=== PATIENT | male | born 1960 | race Two or more races ===

== ENCOUNTER 2022-01-06 08:39 | Inpatient (IN) | payer SELFPAY ==
[~2022-01-06] VITALS: Ht 170.2 cm; Wt 113.0 kg
[2022-01-06 09:33] LABS: BASO % 0 % (0-3); EOS # 0.1 x10^3/uL (0.0-0.7); EOS % 2 % (0-3); HEMATOCRIT 46.2 % (39.0-53.0); HEMOGLOBIN 13.8 g/dL (13.0-17.5); LYMPH % 15 % (24-48); MEAN CORPUSCULAR HEMOGLOBIN 23 pg (25-35); MEAN CORPUSCULAR HGB CONC 30 g/dL (31-37); MEAN CORPUSCULAR VOLUME 78 fL (79-100); MONO # 0.6 x10^3/uL (0.0-1.1); MONO % 10 % (0-9); NEUT # 4.6 x10^3/uL (1.8-7.7); NEUT % 73 % (31-73); PLATELET COUNT 175 x10^3/uL (140-400); RED BLOOD COUNT 5.94 x10^6/uL (4.30-5.70); RED CELL DISTRIBUTION WIDTH 15.9 % (11.5-14.5); WHITE BLOOD COUNT 6.3 x10^3/uL (4.0-11.0)
[2022-01-06 09:38] LABS: BACTERIA,URINE 0 /HPF (0-FEW); WBC,URINE 0 /HPF (0-4)
[2022-01-06 09:42] LABS: CALCIUM 7.4 mg/dL (8.5-10.1); CREATININE 0.8 mg/dL (0.7-1.3); GFR 98.3; POTASSIUM 4.6 mmol/L (3.5-5.1)
--- NOTE | 2022-01-06 09:44 | PHYS DOC ---
Past Medical History Past Medical History: Diabetes-Type II, Hypertension Past Surgical History: No Surgical History General Adult EDM: Chief Complaint: SHORTNESS OF BREATH HPI: HPI: Patient is a 61 year old male who presents with shortness of breath for 8 days. Patient reports past medical history including diabetes and hypertension, for which he usually takes daily medication. However, since Wednesday, he has not taken his medications. Patient reports associated abdominal bloating and swollen legs with sores. Patient denies chest pain, palpitations, cough, nasal congestion, sore throat, abdominal pain, NVD. Patient is yakut speaking. Interview and exam were conducted in yakut with good understanding and fluid communication. Review of Systems: Review of Systems: Constitutional: Denies fever, chills or generalized weakness Eyes: Denies change in visual acuity, visual field deficits or discharge HENT: Denies ear pain, nasal congestion or sore throat Respiratory: See HPI Cardiovascular: See HPI GI: See HPI : Denies dysuria or hematuria Musculoskeletal: Denies back pain or joint pain Integument: See HPI Neurologic: Denies headache, focal weakness or sensory changes Heart Score: C/O Chest Pain: No Allergies: Allergies: Allergies Coded Allergies Type Severity Reaction Last Updated Verified No Known Drug Allergies 01/06/22 No Physical Exam: PE: Constitutional: Obese, no acute distress, non-toxic appearance. HENT: Normocephalic, atraumatic, bilateral external ears normal, nose normal. Eyes: EOMI, conjunctiva normal, no discharge. Neck: Normal range of motion, no stridor, no JVD. Cardiovascular: Heart regular rate and rhythm. No obvious murmurs, rubs or gallops. Lungs & Thorax: Patient does have increased effort breathing, inspiratory wet rales heard right side greater than left. Abdomen: Protuberant abdomen, no masses, no pulsatile masses. Skin: Diffuse nonpruritic, darkened rash across extremities, bilateral lower extremities weeping with less than 1 cm ulcerations. Extremities: Mild tenderness on palpation of bilateral lower extremities, no cyanosis, no clubbing, ROM intact, bilateral 2+ pitting edema. Neurologic: Alert and oriented x4, no focal deficits noted. Current Patient Data: Labs: Laboratory Tests Test 01/06/22 09:13 01/06/22 09:23 Urine Collection Type Unknown Urine Color (Auto) Light yellow Urine Turbidity Clear Urine pH (Auto) 6.5 (<5.0-8.0) Urine Specific [place] 1.017 (1.000-1.030) Urine Protein (Auto) 300 mg/dL (Negative) Urine Glucose (Auto)(UA) 100 mg/dL (Negative) Urine Ketones (Auto) Negative mg/dL (Negative) Urine Blood (Auto) Trace (Negative) Urine Nitrite Negative (Negative) Urine Bilirubin (Auto) Negative (Negative) Urine Urobilinogen (Auto) Normal mg/dL (Normal) Urine Leukocyte Esterase (Auto) Negative (Negative) Urine RBC 1-2 /HPF (0-2) Urine WBC 0 /HPF (0-4) Urine Bacteria 0 /HPF (0-FEW) White Blood Count 6.3 x10^3/uL (4.0-11.0) Red Blood Count 5.94 x10^6/uL (4.30-5.70) Hemoglobin 13.8 g/dL (13.0-17.5) Hematocrit 46.2 % (39.0-53.0) Mean Corpuscular Volume 78 fL (79-100) Mean Corpuscular Hemoglobin 23 pg (25-35) Mean Corpuscular Hemoglobin Concent 30 g/dL (31-37) Red Cell Distribution Width 15.9 % (11.5-14.5) Platelet Count 175 x10^3/uL (140-400) Neutrophils (%) (Auto) 73 % (31-73) Lymphocytes (%) (Auto) 15 % (24-48) Monocytes (%) (Auto) 10 % (0-9) Eosinophils (%) (Auto) 2 % (0-3) Basophils (%) (Auto) 0 % (0-3) Neutrophils # (Auto) 4.6 x10^3/uL (1.8-7.7) Lymphocytes # (Auto) 1.0 x10^3/uL (1.0-4.8) Monocytes # (Auto) 0.6 x10^3/uL (0.0-1.1) Eosinophils # (Auto) 0.1 x10^3/uL (0.0-0.7) Basophils # (Auto) 0.0 x10^3/uL (0.0-0.2) Sodium Level 142 mmol/L (136-145) Potassium Level 4.6 mmol/L (3.5-5.1) Chloride Level 104 mmol/L (98-107) Carbon Dioxide Level 37 mmol/L (21-32) Anion Gap 1 (6-14) Blood Urea Nitrogen 16 mg/dL (8-26) Creatinine 0.8 mg/dL (0.7-1.3) Estimated GFR (Cockcroft-Gault) 98.3 BUN/Creatinine Ratio 20 (6-20) Glucose Level 182 mg/dL (70-99) Calcium Level 7.4 mg/dL (8.5-10.1) Magnesium Level 1.8 mg/dL (1.8-2.4) Total Bilirubin 0.6 mg/dL (0.2-1.0) Aspartate Amino Transf (AST/SGOT) 28 U/L (15-37) Alanine Aminotransferase (ALT/SGPT) 51 U/L (16-63) Alkaline Phosphatase 98 U/L (46-116) Troponin I High Sensitivity 143 ng/L (4-75) FL-Jha-X-Type Natriuretic Peptide 2271 pg/mL (0-124) Total Protein 5.6 g/dL (6.4-8.2) Albumin 2.4 g/dL (3.4-5.0) Albumin/Globulin Ratio 0.8 (1.0-1.7) Vital Signs: Vital Signs Date Time Temp Pulse Resp B/P (MAP) Pulse Ox O2 Delivery O2 Flow Rate FiO2 01/06/22 10:05 70 22 169/93 (118) 96 Nasal Cannula 2.0 01/06/22 09:32 73 24 158/85 (109) 92 Room Air 01/06/22 09:13 76 163/89 (113) Room Air 01/06/22 08:42 98.2 82 26 199/110 (139) 92 Room Air 98.2 EKG: EKG: EKG Interpreted by Dr. Cedeno at 0928: Regular rate and rhythm 74 bpm with no ectopic beats. T wave inversions in septal leads. NH 130 ms/QT 418 ms. No STEMI. Radiology/Procedures: Radiology/Procedures: PROCEDURE: CHEST AP ONLY XR CHEST 1V History: Reason: SOB, peripheral edema / Spl. Instructions: / History: Comparison: None. Findings: Enlarged cardiac size. Small right pleural effusion with loculated component laterally. Mild patchy bibasilar opacities. No pneumothorax. Impression: 1. Small right pleural effusion. 2. Mild patchy bibasilar opacities, may represent atelectasis or developing infiltrates. 3. Enlarged cardiac size, may represent cardiomegaly and/or pericardial effusion. Electronically signed by: Benson Zapien DO (01/06/2022 10:44 AM) [id number] Course & Med Decision Making: Course & Med Decision Making Pertinent Labs and Imaging studies reviewed. (See chart for details) Patient is a 61-year-old male with past medical history including diabetes and hypertension who has not had his medication for a few days and is presenting with shortness of breath and lower extremity swelling. Patient appears to be in fluid overload secondary to CHF. Patient denies existing diagnosis of CHF. Patient will be admitted to hospitalist for new onset CHF work-up. Dr. Naga bravo accepts patient. Estephanie Disclaimer: Estephanie Disclaimer: This electronic medical record was generated, in whole or in part, using a voice recognition dictation system. Departure Departure Impression: Primary Impression: New onset of congestive heart failure Additional Impressions: Generalized edema due to fluid overload Hx of primary hypertension Hx of type 2 diabetes mellitus Disposition: ADMITTED INPATIENT Admitting Physician: WILIAM Diego) Condition: GUARDED MARY VYAS Jan 06, 2022 09:44
[2022-01-06 09:48] LABS: ALBUMIN 2.4 g/dL (3.4-5.0); ALBUMIN/GLOBULIN RATIO 0.8 (1.0-1.7); MAGNESIUM 1.8 mg/dL (1.8-2.4); TOTAL BILIRUBIN 0.6 mg/dL (0.2-1.0); TOTAL PROTEIN 5.6 g/dL (6.4-8.2)
[2022-01-06] MEDS ORDERED: FUROSEMIDE 100 MG/10 ML VIAL. IVP ONE (10:15)
--- NOTE | 2022-01-06 10:35 | EKG ---
[facility] [address] [place] [address] Test Date: 2022-01-06 Test Time: 09:26:42 Pat Name: ARNOLD KRAUS Department: Room: Gender: M [employer]: : 1960 Requested By: MARY VYAS Order Number: [id number] Reading MD: Sergio Donohue Measurements Intervals [place] Rate: 74 P: 28 NC: 130 QRS: 94 QRSD: 84 T: -34 QT: 418 QTc: 464 Interpretive Statements SINUS RHYTHM RIGHTWARD AXIS T ABNORMALITY IN ANTERIOR LEADS Electronically Signed On 01-17-2022 9:50:59 CDT by Sergio Donohue
--- NOTE | 2022-01-06 10:47 | RAD ---
XR CHEST 1V History: Reason: SOB, peripheral edema / Spl. Instructions: / History: Comparison: None. Findings: Enlarged cardiac size. Small right pleural effusion with loculated component laterally. Mild patchy b ibasilar opacities. No pneumothorax. Impression: 1. Small right pleural effusion. 2. Mild patchy bibasilar opacities, may represent atelectasis or developing infiltrates. 3. Enlarged cardiac size, may represent cardiomegaly and/or pericardial effusion. Electronically signed by: Benson Zapien DO (01/06/2022 10:44 AM) [id number]
--- NOTE | 2022-01-06 12:24 | HP ---
DATE OF SERVICE: 01/06/2022 ADMIT DATE: 01/06/2022 CHIEF COMPLAINT: Shortness of breath and swelling. 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 Basically, he presented with shortness of breath and swelling. It appears he has heart failure. He has an elevated BNP. His chest x-ray showing some vascular congestion and cardiomegaly and effusions. We are going to admit the patient and diurese him. PAST MEDICAL HISTORY: Benign. ALLERGIES: None. FAMILY HISTORY: Diabetes. SOCIAL HISTORY: He works doing cabinetry. Does not drink, smoke or take drugs. MEDICATIONS: Reviewed, please refer to the MRAD. REVIEW OF SYSTEMS: GENERAL: No history of weight change, weakness or fevers. SKIN: No bruising, hair changes or rashes. EYES: No blurred, double or loss of vision. NOSE AND THROAT: No history of nosebleeds, hoarseness or sore throat. HEART: No history of palpitations, chest pain or shortness of breath on exertion. LUNGS: He complains of shortness of breath. GASTROINTESTINAL: Denies changes in appetite, nausea, vomiting, diarrhea or constipation. GENITOURINARY: No history of frequency, urgency, hesitancy or nocturia. NEUROLOGIC: Denies history of numbness, tingling, tremor or weakness. PSYCHIATRIC: No history of panic, anxiety or depression. ENDOCRINE: No history of heat or cold intolerance, polyuria or polydipsia. EXTREMITIES: He complains of edema. PHYSICAL EXAMINATION: VITALS: Within normal limits and are stable. GENERAL: No apparent distress. Alert and oriented. HEENT: Normal cephalic atraumatic, external auditory canals are patent. EYES: Extraocular muscles are intact, pupils are equally round and reactive to light and accommodation. MUSCULOSKELETAL: Well developed, well nourished, good range of motion. ENDOCRINE: No thyromegaly was palpated. LYMPHATICS: No cervical chain or axillary nodes were noted. HEMATOPOIETIC: No bruising NECK: Supple, no JVD, no thyromegaly was noted. LUNGS: He has bibasilar crackles. HEART: RRR, S1, S2 present. Peripheral pulses intact, no obvious murmurs were noted. ABDOMEN: Soft, nontender. Positive bowel sounds no organomegaly, normal bowel sounds. EXTREMITIES: He has 2+ edema. NEUROLOGIC: Normal speech, normal tone. A and O x 3, moves all extremities, no obvious focal deficits. PSYCHIATRIC: Normal affect, normal mood. Stable. SKIN: No ulcerations or rashes, good skin turgor, no jaundice. VASCULAR: Good capillary refill, neurovascular bundle appears to be intact. DIAGNOSTICS AND LABORATORY DATA: Chest x-ray shows vascular congestion, cardiomegaly and small effusions and possible infiltrates. White count 6.3. ASSESSMENT AND PLAN: Acute on chronic systolic and diastolic heart failure. The patient will be admitted. We will start IV Lasix. Cardiac monitoring, serial enzymes, serial EKGs. Consult Cardiology. Home meds. Deep venous thrombosis prophylaxis. Full code. Long-term prognosis is guarded. NIKOS/MIGUELANGEL DR: Brenda TID: [id number]
--- NOTE | 2022-01-06 12:51 | PDOC2 ---
CARDIAC CONSULT DATE OF CONSULT Date of Consult DATE: 01/06/22 TIME: 12:47 REASON FOR CONSULT Reason for Consult: CHF REFERRING PHYSICIAN Referring Physician: MERLYN Hernandez SOURCE Source: Chart review, Patient HISTORY OF PRESENT ILLNESS HISTORY OF PRESENT ILLNESS This is a 61 yo male who presented secondary to shortness of breath. Patient reports he has been short of breath for the last week or so. Associated with bilateral LE edema and abdominal distention. Denies any chest pain, palpitations, dizziness, diaphoresis, or nausea/vomiting. Has has history of hypertension and diabetes. Has not taken his medications since this past weekend. PAST MEDICAL HISTORY Cardiovascular: HTN Endocrine: Diabetes PAST SURGICAL HISTORY Past Surgical History: No pertinent history FAMILY HISTORY Family History: Diabetes SOCIAL HISTORY Smoke: No ALCOHOL: none Drugs: None Lives: with Family CURRENT MEDICATIONS CURRENT MEDICATIONS Current Medications Medications (Trade) Dose Ordered Sig/[place] PRN Reason Start Time Stop Time Status Last Admin Dose Admin Furosemide (Lasix) 100 mg 1X ONCE IVP 01/06/22 10:15 01/06/22 10:18 DC 01/06/22 10:53 ALLERGIES ALLERGIES: Coded Allergies: No Known Drug Allergies (Unverified , 01/06/22) ROS Review of System 14 point ROS conducted with pertinent positives noted above in HPI PHYSICAL EXAM General: Alert, Oriented X3, Cooperative, No acute distress HEENT: Atraumatic, Mucous membr. moist/pink Lungs: Other (crackles ) Heart: Regular rate Abdomen: Soft, Other (distended ) Extremities: Other (1-2+ bilateral LE edema ) Skin: No significant lesion Neuro: Normal speech, Sensation intact Psych/Mental Status: Mental status NL, Mood NL MUSCULOSKELETAL: Osteoarthritic changes both hands VITALS/I&O VITALS/I&O: Vital Signs Date Time Temp Pulse Resp B/P (MAP) Pulse Ox O2 Delivery O2 Flow Rate FiO2 01/06/22 10:05 70 22 169/93 (118) 96 Nasal Cannula 2.0 01/06/22 08:42 98.2 98.2 LABS Lab: Laboratory Tests Test 01/06/22 09:13 01/06/22 09:23 Urine Collection Type Unknown Urine Color (Auto) Light yellow Urine Turbidity Clear Urine pH (Auto) 6.5 (<5.0-8.0) Urine Specific [place] 1.017 (1.000-1.030) Urine Protein (Auto) 300 mg/dL (Negative) Urine Glucose (Auto)(UA) 100 mg/dL (Negative) Urine Ketones (Auto) Negative mg/dL (Negative) Urine Blood (Auto) Trace (Negative) Urine Nitrite Negative (Negative) Urine Bilirubin (Auto) Negative (Negative) Urine Urobilinogen (Auto) Normal mg/dL (Normal) Urine Leukocyte Esterase (Auto) Negative (Negative) Urine RBC 1-2 /HPF (0-2) Urine WBC 0 /HPF (0-4) Urine Bacteria 0 /HPF (0-FEW) White Blood Count 6.3 x10^3/uL (4.0-11.0) Red Blood Count 5.94 x10^6/uL (4.30-5.70) H Hemoglobin 13.8 g/dL (13.0-17.5) Hematocrit 46.2 % (39.0-53.0) Mean Corpuscular Volume 78 fL (79-100) L Mean Corpuscular Hemoglobin 23 pg (25-35) L Mean Corpuscular Hemoglobin Concent 30 g/dL (31-37) L Red Cell Distribution Width 15.9 % (11.5-14.5) H Platelet Count 175 x10^3/uL (140-400) Neutrophils (%) (Auto) 73 % (31-73) Lymphocytes (%) (Auto) 15 % (24-48) L Monocytes (%) (Auto) 10 % (0-9) H Eosinophils (%) (Auto) 2 % (0-3) Basophils (%) (Auto) 0 % (0-3) Neutrophils # (Auto) 4.6 x10^3/uL (1.8-7.7) Lymphocytes # (Auto) 1.0 x10^3/uL (1.0-4.8) Monocytes # (Auto) 0.6 x10^3/uL (0.0-1.1) Eosinophils # (Auto) 0.1 x10^3/uL (0.0-0.7) Basophils # (Auto) 0.0 x10^3/uL (0.0-0.2) Sodium Level 142 mmol/L (136-145) Potassium Level 4.6 mmol/L (3.5-5.1) Chloride Level 104 mmol/L (98-107) Carbon Dioxide Level 37 mmol/L (21-32) H Anion Gap 1 (6-14) L Blood Urea Nitrogen 16 mg/dL (8-26) Creatinine 0.8 mg/dL (0.7-1.3) Estimated GFR (Cockcroft-Gault) 98.3 BUN/Creatinine Ratio 20 (6-20) Glucose Level 182 mg/dL (70-99) H Calcium Level 7.4 mg/dL (8.5-10.1) L Magnesium Level 1.8 mg/dL (1.8-2.4) Total Bilirubin 0.6 mg/dL (0.2-1.0) Aspartate Amino Transferase (AST) 28 U/L (15-37) Alanine Aminotransferase (ALT) 51 U/L (16-63) Alkaline Phosphatase 98 U/L (46-116) Troponin I High Sensitivity 143 ng/L (4-75) H YY-Rvz-D-Type Natriuretic Peptide 2271 pg/mL (0-124) H Total Protein 5.6 g/dL (6.4-8.2) L Albumin 2.4 g/dL (3.4-5.0) L Albumin/Globulin Ratio 0.8 (1.0-1.7) L Laboratory Tests 01/06/22 09:23 Laboratory Tests 01/06/22 09:23 ASSESSMENT/PLAN ASSESSMENT/PLAN 1. Acute CHF with possibly diastolic dysfunction; s/p IV Lasix 2. Accelerated HTN; due to med noncompliance 3. Mild troponin elevation; initial high sensitivity trop 143. Most probably type II, demand ischemia secondary to above. CP free. EKG suggestive of anteroseptal ischemia 4. Diabetes, II Recommendations Diuresis Monitor I and O, daily weights Trend troponin ASA therapy Resume home meds when list available Hydralazine IV PRN Lipids Echo to assess LV systolic function Will need further ischemic evaluation, possibly on an outpatient basis. Further pending above HAM TOLEDO APRN Jan 06, 2022 12:51
[2022-01-06 15:00] VITALS: BP 138/92
[2022-01-06] MEDS ORDERED: hydrALAZINE 20 MG/ML VIAL. IVP PRN (16:00)
[2022-01-06] MEDS: ASPIRIN ENTERIC COATED 81 MG TABLET.DR. PO SCH (17:37)
[2022-01-06 19:35] VITALS: BP 156/86
[2022-01-06] MEDS: ATORVASTATIN CALCIUM 40 MG TABLET. PO SCH (21:14)
[2022-01-06 22:58] VITALS: BP 140/82
[2022-01-07 02:44] VITALS: BP 147/90
[2022-01-07 07:00] VITALS: BP 155/86
[2022-01-07] MEDS ORDERED: FUROSEMIDE 40 MG/4 ML VIAL. IVP SCH (09:00)
[2022-01-07] MEDS: ASPIRIN ENTERIC COATED 81 MG TABLET.DR. PO SCH (09:25)
--- NOTE | 2022-01-07 10:29 | PDOC ---
CARDIO Progress Notes Date and Time Date of Service 01/07/22 Time of Evaluation 1030 Subjective Subjective: No Chest Pain, No Palpitations, No Dizziness, Other (swelling better, wanting to go home) Vitals Vitals Vital Signs Date Time Temp Pulse Resp B/P (MAP) Pulse Ox O2 Delivery O2 Flow Rate FiO2 01/07/22 08:00 Nasal Cannula 4.0 01/07/22 07:00 98.5 68 19 155/86 (109) 98 98.5 Weight Weight [ ] Input and Output Intake and Output Intake and Output 01/07/22 07:00 Intake Total 420 ml Output Total 2750 ml Balance -2330 ml Intake Oral 420 ml Output Urine Total 2750 ml Laboratory Labs Laboratory Tests Test 01/06/22 17:25 01/07/22 03:10 Troponin I High Sensitivity 128 ng/L (4-75) Triglycerides Level 130 mg/dL (0-150) Cholesterol Level 128 mg/dL (0-200) LDL Cholesterol, Calculated 70 mg/dL (0-100) VLDL Cholesterol, Calculated 26 mg/dL (0-40) Non-HDL Cholesterol Calculated 96 mg/dL (0-129) HDL Cholesterol 32 mg/dL (40-60) Cholesterol/HDL Ratio 4.0 Physical Exam HEENT: Neck Supple W Full Motion Chest: Symmetric LUNGS: Other (diminished bases ) Heart: RRR Abdomen: Other (distended ) Extremities: Other (2+ bilateral LE edema ) Neurology: alert, oriented, follow commands Assessment Assessment 1. Acute CHF with possible diastolic dysfunction; s/p IV Lasix 2. Accelerated HTN; better controlled 3. Mild troponin elevation; high sensitivity trop peak 143. Most probably type II, demand ischemia secondary to above. CP free. EKG suggestive of anteroseptal ischemia 4. Diabetes, II Recommendations Ongoing diuresis; increase to BID Monitor I and O, daily weights ASA therapy Add amlodipine for BP control Hydralazine IV PRN Echo pending Will need further ischemic evaluation, possibly on an outpatient basis. Further pending above Justicifation of Admission Dx: Justifications for Admission: Justification of Admission Dx: Yes CHF: Hemodynamic Instability HAM TOLEDO APRN Jan 07, 2022 10:28
[2022-01-07] MEDS ORDERED: PERFLUTREN PROTEIN-A MICROSPHR 0.22 MG/ML 3 ML VIAL. IV ONE (10:45)
[2022-01-07 10:55] VITALS: BP 157/90
[2022-01-07 11:04] LABS: CALCIUM 7.6 mg/dL (8.5-10.1); MAGNESIUM 1.8 mg/dL (1.8-2.4); POTASSIUM 4.1 mmol/L (3.5-5.1)
--- NOTE | 2022-01-07 14:33 | NUR ---
SS following for discharge planning. SS reviewed pt chart and discussed with pt RN. Pt is from home and is currently requiring oxygen at three-four liters nasal canula. Pt has no home oxygen. Cardiology following. Pt on IV Lasix. [place]raini speaking only. Self pay. Med Assist following. SS will continue to follow for discharge planning.
[2022-01-07 15:00] VITALS: BP 158/84
[2022-01-07] MEDS ORDERED: AMLO-186 PO (15:57)
[2022-01-07] MEDS ORDERED: POTA10TA12 PO (15:57)
[2022-01-07] MEDS ORDERED: FURO-68 PO (15:57)
[2022-01-07] MEDS ORDERED: ATOR40TA59 PO (15:57)
--- NOTE | 2022-01-07 16:04 | PDOC3 ---
Discharge Summary Visit Information Date of Admission: Jan 06, 2022 Date of Discharge: Jan 07, 2022 Final Diagnosis 1. Acute CHF with possible diastolic dysfunction; s/p IV Lasix 2. Accelerated HTN; better controlled 3. Mild troponin elevation; high sensitivity trop peak 143. Most probably type II, demand ischemia secondary to above. CP free. EKG suggestive of anteroseptal ischemia 4. Diabetes, II Problems Medical Problems: (1) Generalized edema due to fluid overload Status: Acute (2) Hx of primary hypertension Status: Acute (3) Hx of type 2 diabetes mellitus Status: Acute (4) New onset of congestive heart failure Status: Acute Brief Hospital Course Allergies Allergies Coded Allergies Type Severity Reaction Last Updated Verified No Known Drug Allergies 01/06/22 No Vital Signs Vital Signs Date Time Temp Pulse Resp B/P (MAP) Pulse Ox O2 Delivery O2 Flow Rate FiO2 01/07/22 15:00 97.9 71 19 158/84 (108) 95 Nasal Cannula 3.0 97.9 Lab Results Laboratory Tests Test 01/06/22 09:13 01/06/22 09:23 01/06/22 17:25 01/07/22 03:10 Urine Collection Type Unknown Urine Color (Auto) Light yellow Urine Turbidity Clear Urine pH (Auto) 6.5 (<5.0-8.0) Urine Specific [place] 1.017 (1.000-1.030) Urine Protein (Auto) 300 mg/dL (Negative) Urine Glucose (Auto)(UA) 100 mg/dL (Negative) Urine Ketones (Auto) Negative mg/dL (Negative) Urine Blood (Auto) Trace (Negative) Urine Nitrite Negative (Negative) Urine Bilirubin (Auto) Negative (Negative) Urine Urobilinogen (Auto) Normal mg/dL (Normal) Urine Leukocyte Esterase (Auto) Negative (Negative) Urine RBC 1-2 /HPF (0-2) Urine WBC 0 /HPF (0-4) Urine Bacteria 0 /HPF (0-FEW) White Blood Count 6.3 x10^3/uL (4.0-11.0) Red Blood Count 5.94 x10^6/uL (4.30-5.70) Hemoglobin 13.8 g/dL (13.0-17.5) Hematocrit 46.2 % (39.0-53.0) Mean Corpuscular Volume 78 fL (79-100) Mean Corpuscular Hemoglobin 23 pg (25-35) Mean Corpuscular Hemoglobin Concent 30 g/dL (31-37) Red Cell Distribution Width 15.9 % (11.5-14.5) Platelet Count 175 x10^3/uL (140-400) Neutrophils (%) (Auto) 73 % (31-73) Lymphocytes (%) (Auto) 15 % (24-48) Monocytes (%) (Auto) 10 % (0-9) Eosinophils (%) (Auto) 2 % (0-3) Basophils (%) (Auto) 0 % (0-3) Neutrophils # (Auto) 4.6 x10^3/uL (1.8-7.7) Lymphocytes # (Auto) 1.0 x10^3/uL (1.0-4.8) Monocytes # (Auto) 0.6 x10^3/uL (0.0-1.1) Eosinophils # (Auto) 0.1 x10^3/uL (0.0-0.7) Basophils # (Auto) 0.0 x10^3/uL (0.0-0.2) Sodium Level 142 mmol/L (136-145) 145 mmol/L (136-145) Potassium Level 4.6 mmol/L (3.5-5.1) 4.1 mmol/L (3.5-5.1) Chloride Level 104 mmol/L (98-107) 104 mmol/L (98-107) Carbon Dioxide Level 37 mmol/L (21-32) 37 mmol/L (21-32) Anion Gap 1 (6-14) 4 (6-14) Blood Urea Nitrogen 16 mg/dL (8-26) 15 mg/dL (8-26) Creatinine 0.8 mg/dL (0.7-1.3) 1.0 mg/dL (0.7-1.3) Estimated GFR (Cockcroft-Gault) 98.3 76.0 BUN/Creatinine Ratio 20 (6-20) Glucose Level 182 mg/dL (70-99) 118 mg/dL (70-99) Calcium Level 7.4 mg/dL (8.5-10.1) 7.6 mg/dL (8.5-10.1) Magnesium Level 1.8 mg/dL (1.8-2.4) 1.8 mg/dL (1.8-2.4) Total Bilirubin 0.6 mg/dL (0.2-1.0) Aspartate Amino Transf (AST/SGOT) 28 U/L (15-37) Alanine Aminotransferase (ALT/SGPT) 51 U/L (16-63) Alkaline Phosphatase 98 U/L (46-116) Troponin I High Sensitivity 143 ng/L (4-75) 128 ng/L (4-75) EV-Deo-P-Type Natriuretic Peptide 2271 pg/mL (0-124) Total Protein 5.6 g/dL (6.4-8.2) Albumin 2.4 g/dL (3.4-5.0) Albumin/Globulin Ratio 0.8 (1.0-1.7) Thyroid Stimulating Hormone (TSH) 1.962 uIU/mL (0.358-3.74) Triglycerides Level 130 mg/dL (0-150) Cholesterol Level 128 mg/dL (0-200) LDL Cholesterol, Calculated 70 mg/dL (0-100) VLDL Cholesterol, Calculated 26 mg/dL (0-40) Non-HDL Cholesterol Calculated 96 mg/dL (0-129) HDL Cholesterol 32 mg/dL (40-60) Cholesterol/HDL Ratio 4.0 Laboratory Tests Test 01/06/22 17:25 01/07/22 03:10 Troponin I High Sensitivity 128 ng/L (4-75) Sodium Level 145 mmol/L (136-145) Potassium Level 4.1 mmol/L (3.5-5.1) Chloride Level 104 mmol/L (98-107) Carbon Dioxide Level 37 mmol/L (21-32) Anion Gap 4 (6-14) Blood Urea Nitrogen 15 mg/dL (8-26) Creatinine 1.0 mg/dL (0.7-1.3) Estimated GFR (Cockcroft-Gault) 76.0 Glucose Level 118 mg/dL (70-99) Calcium Level 7.6 mg/dL (8.5-10.1) Magnesium Level 1.8 mg/dL (1.8-2.4) Triglycerides Level 130 mg/dL (0-150) Cholesterol Level 128 mg/dL (0-200) LDL Cholesterol, Calculated 70 mg/dL (0-100) VLDL Cholesterol, Calculated 26 mg/dL (0-40) Non-HDL Cholesterol Calculated 96 mg/dL (0-129) HDL Cholesterol 32 mg/dL (40-60) Cholesterol/HDL Ratio 4.0 Brief Hospital Course Mr. Palafox is a 61 old male, admi with CHF, better with IV lasix, BNP 2200 trop minimally up, no CAD per CV cnsult Echo, may be done outpatietn, should have outpatient stress test. Discharge Information Condition at Discharge: Improved Follow Up: Weeks Disposition/Orders: D/C to Home Scheduled Amlodipine Besylate (Amlodipine Besylate) 5 Mg Tablet, 5 MG PO DAILY for blood pressure, #30 Ref 1 Prescribed by: SCOTT ORANTES on 01/07/221556 Atorvastatin Calcium (Atorvastatin Calcium) 40 Mg Tablet, 40 MG PO QHS for lipids, #30 Ref 1 Prescribed by: SCOTT ORANTES on 01/07/227 Furosemide (Lasix) 40 Mg Tablet, 1 TAB PO DAILY for CHF for 30 Days, #30 Ref 0 Prescribed by: SCOTT ORANTES on 01/07/221556 Potassium Chloride (Klor-Con 10) 10 Meq Tablet.er, 1 TAB PO DAILY for while on Lasix for 30 Days, #30 Ref 0 Prescribed by: SCOTT ORANTES on 01/07/22 1557 Patient Instructions Patient Instructions f/u Virgen with primary care 33 min face to face Justicifation of Admission Dx: Justifications for Admission: Justification of Admission Dx: Yes CHF: Hemodynamic Instability SCOTT ORANTES MD Jan 07, 2022 16:04
--- NOTE | 2022-01-07 16:17 | NUR ---
Spoke with Ariane ALVES she states patient is not ok to discharge home. Patient needs to continue to diurese and await echo results before discharging.
--- NOTE | 2022-01-07 16:39 | CARD ---
MR#: [id number] Date of Study: 01/07/2022 Ordering Physician: HAM TOLEDO, Referring Physician: HAM TOLEDO, Tech: Isaias Argueta [facility] APPROVED REPORT EXAM: Two-dimensional and M-mode echocardiogram with Doppler and color Doppler. Other Information Quality : AverageHR: 67bpm Rhythm : NSR INDICATION Congestive Heart Failure 2D DIMENSIONS Left Atrium(2D)4.1 (1.6-4.0cm)IVSd1.2 (0.7-1.1cm) Aortic Root(2D)3.6 (2.0-3.7cm)LVDd4.6 (3.9-5.9cm) LVOT Diameter2.0 (1.8-2.4cm)PWd1.3 (0.7-1.1cm) LVDs2.9 (2.5-4.0cm)FS (%) 38.4 % SV68.0 mlLVEF(%)68.7 (>50%) Aortic Valve AoV Peak Yan.160.7cm/sAoV VTI33.0cm AO Peak GR.10.3mmHgLVOT Peak Yan.112.2cm/s LVOT VTI 25.29cmAO Mean GR.6mmHg PRISCILLA (VMAX)1.11hd4HCX (VTI)2.30cm2 Mitral Valve MV E Ctfxgcuq54.0cm/sMV DECEL SYSH449zj MV A Ujcchrfe868.7cm/sMV DUB32qf E/A Ratio0.9MVA (PHT)3.24cm2 TDI E/Lateral E'17.5E/Medial E'19.4 Pulmonary Valve PV Peak Rijxhgeo611.1cm/sPV Peak Grad.5mmHg Tricuspid Valve TR P. Azlifptd487jy/sTR Peak Gr.39mmHg Pulmonary Vein S1 Vytsddgu68.1cm/sD2 Cypszekq72.9cm/s LEFT VENTRICLE The left ventricle is normal size. There is normal left ventricular wall thickness. The left ventricu lar systolic function is normal. The ejection fraction is 55-60%. There is normal LV segmental wall m otion. Transmitral Doppler flow pattern is Grade I-abnormal relaxation pattern. No left ventricle thr ombus noted on this study. There is no ventricular septal defect visualized. There is no left ventric ular aneurysm. There is no mass noted in the left ventricle. RIGHT VENTRICLE The right ventricle is mildly dilated. There is normal right ventricular wall thickness. The right ve ntricular systolic function is normal. ATRIA The left atrium is borderline dilated. The right atrium is mildly dilated. The interatrial septum is intact with no evidence for an atrial septal defect or patent foramen ovale as noted on 2-D or Dopple r imaging. AORTIC VALVE The aortic valve is mildly sclerotic. Doppler and Color Flow revealed no significant aortic regurgita tion. There is no significant aortic valvular stenosis. There is no aortic valvular vegetation. MITRAL VALVE The mitral valve is normal in structure and function. There is no evidence of mitral valve prolapse. There is no mitral valve stenosis. Doppler and Color-flow revealed trace mitral regurgitation. TRICUSPID VALVE The tricuspid valve is normal in structure and function. Doppler and Color Flow revealed trace tricus pid regurgitation. The PA pressure was estimated at 50 mmHg. There is no tricuspid valve prolapse or vegetation. There is no tricuspid valve stenosis. PULMONIC VALVE The pulmonary valve is normal in structure and function. Doppler and Color Flow revealed no pulmonic valvular regurgitation. There is no pulmonic valvular stenosis. GREAT VESSELS The aortic root is normal in size. The ascending aorta is normal in size. The pulmonary artery is nor mal. The IVC is normal in size and collapses >50% with inspiration. PERICARDIAL EFFUSION There is no pleural effusion. There is no evidence of significant pericardial effusion. Critical Notification Critical Value: No <Conclusion> The left ventricular systolic function is normal. The ejection fraction is 55-60%. There is normal LV segmental wall motion. Transmitral Doppler flow pattern is Grade I-abnormal relaxation pattern. Trace mitral regurgitation. Trace tricuspid regurgitation. The PA pressure was estimated at 50 mmHg. There is no evidence of significant pericardial effusion. Signed by : Sergio Donohue, Electronically Approved : 01/07/2022 16:39:32
[2022-01-07] MEDS: FUROSEMIDE 40 MG/4 ML VIAL. IVP SCH (16:42)
[2022-01-07 19:14] VITALS: BP 184/90
--- NOTE | 2022-01-07 19:40 | NUR ---
Pt in bed assessment completed vss pt denied pain at this time will resume care and continue to monitor pt.Call light in reach.
[2022-01-07 20:48] LABS: AMPHETAMINE/METHAMPHETAMINE NEG (NEG); BARBITURATES NEG (NEG); BENZODIAZEPINES NEG (NEG); CANNABINOIDS NEG (NEG); COCAINE NEG (NEG); METHADONE NEG (NEG); OPIATES NEG (NEG); PHENCYCLIDINE NEG (NEG)
[2022-01-07] MEDS: ATORVASTATIN CALCIUM 40 MG TABLET. PO SCH (21:51)
[2022-01-07 23:01] VITALS: BP 182/75
[2022-01-08 03:00] VITALS: BP 181/101
[2022-01-08 04:39] VITALS: BP 169/94
[2022-01-08 04:59] LABS: HEMOGLOBIN A1C 7.4 % (4.8-5.6)
[2022-01-08 07:00] VITALS: BP 157/94
[2022-01-08] MEDS: FUROSEMIDE 40 MG/4 ML VIAL. IVP SCH ×2 (08:11→14:00)
[2022-01-08] MEDS: POTASSIUM CHLORIDE 20 MEQ TABLET.ER. PO SCH (08:12)
[2022-01-08] MEDS: ASPIRIN ENTERIC COATED 81 MG TABLET.DR. PO SCH (08:12)
[2022-01-08 10:59] VITALS: BP 160/90
--- NOTE | 2022-01-08 13:09 | NUR ---
SS following up with discharge planning. SS reviewed pt chart and discussed with pt RN. Pt is currently on room air. Cardiology following. Self pay. Med Assist following. Discharge order on the chart for home with self care. Addendum: 01/08/22 at 1316 by GIGI YOUNGBLOOD SS Good RX card and information for [facility] services provided for discharge to home. Addendum: 01/08/22 at 1533 by GIGI YOUNGBLOOD SS Per RN. Pt is currently requiring oxygen at three liters nasal canula. Six minute walk ordered.
--- NOTE | 2022-01-08 14:08 | PDOC ---
[employer] PROGRESS NOTE Date of Service DOS: DATE: 01/08/22 TIME: 14:07 Chief Complaint Chief Complaint LATE ENTRY, DC order placed on 01/07, pt seen and DC plan made, exam doen 1. Acute diasolic CHF with acute edema 2. Accelerated HTN on admit, needs meds 3. NSTEMI 2, demand 4. DM2 5. OBESE, bmi 39 History of Present Illness History of Present Illness felt well, wantede to leave, extra IV lasix was given Vitals/I&O Vitals/I&O: Vital Signs Date Time Temp Pulse Resp B/P (MAP) Pulse Ox O2 Delivery O2 Flow Rate FiO2 01/08/22 10:59 97.4 66 19 160/90 (113) 100 Nasal Cannula 3.0 97.4 I & O 01/07/22 01/07/22 01/08/22 15:00 23:00 07:00 Intake Total 360 ml 380 ml Output Total 1700 ml 1000 ml 1050 ml Balance -1340 ml -620 ml -1050 ml Physical Exam General: Alert, Oriented X3, Cooperative, No acute distress Heart: Regular rate Abdomen: Soft, Other (distended ) Extremities: Other (1-2+ bilateral LE edema ) Skin: No significant lesion Labs Labs: Laboratory Tests Test 01/07/22 19:53 Urine Opiates Screen Neg (NEG) Urine Methadone Screen Neg (NEG) Urine Barbiturates Neg (NEG) Urine Phencyclidine Screen Neg (NEG) Urine Amphetamine/Methamphetamine Neg (NEG) Urine Benzodiazepines Screen Neg (NEG) Urine Cocaine Screen Neg (NEG) Urine Cannabinoids Screen Neg (NEG) Urine Ethyl Alcohol Neg (NEG) Assessment and Plan Assessmemt and Plan Problems Medical Problems: (1) Generalized edema due to fluid overload Status: Acute (2) Hx of primary hypertension Status: Acute (3) Hx of type 2 diabetes mellitus Status: Acute (4) New onset of congestive heart failure Status: Acute Comment Review of Relevant I have reviewed the following items indira (where applicable) has been applied. Medications: Current Medications Medications (Trade) Dose Ordered Sig/Bay Route PRN Reason Start Time Stop Time Status Last Admin Dose Admin Furosemide (Lasix) 40 mg [id number] IVP 01/07/22 16:00 01/08/22 08:11 Potassium Chloride (Klor-Con) 20 meq [id number] PO 01/08/22 08:00 01/08/22 08:12 Amlodipine Besylate (Norvasc) 5 mg DAILY PO 01/07/22 16:00 01/08/22 08:12 Justifications for Admission Other Justification SCOTT ORANTES MD Jan 08, 2022 14:08
--- NOTE | 2022-01-08 14:15 | PDOC3 ---
Discharge Summary Visit Information Date of Admission: Jan 06, 2022 Date of Discharge: Jan 07, 2022 Final Diagnosis 1. Acute diasolic CHF with acute edema 2. Accelerated HTN on admit, needs htn meds to continue 3. NSTEMI 2, demand 4. DM2 5. OBESE, bmi 39 Problems Medical Problems: (1) Generalized edema due to fluid overload Status: Acute (2) Hx of primary hypertension Status: Acute (3) Hx of type 2 diabetes mellitus Status: Acute (4) New onset of congestive heart failure Status: Acute Brief Hospital Course Allergies Allergies Coded Allergies Type Severity Reaction Last Updated Verified No Known Drug Allergies 01/06/22 No Vital Signs Vital Signs Date Time Temp Pulse Resp B/P (MAP) Pulse Ox O2 Delivery O2 Flow Rate FiO2 01/08/22 10:59 97.4 66 19 160/90 (113) 100 Nasal Cannula 3.0 97.4 Lab Results Laboratory Tests Test 01/06/22 17:25 01/07/22 03:10 01/07/22 19:53 Troponin I High Sensitivity 128 ng/L (4-75) Sodium Level 145 mmol/L (136-145) Potassium Level 4.1 mmol/L (3.5-5.1) Chloride Level 104 mmol/L (98-107) Carbon Dioxide Level 37 mmol/L (21-32) Anion Gap 4 (6-14) Blood Urea Nitrogen 15 mg/dL (8-26) Creatinine 1.0 mg/dL (0.7-1.3) Estimated GFR (Cockcroft-Gault) 76.0 Glucose Level 118 mg/dL (70-99) Hemoglobin A1c 7.4 % (4.8-5.6) Calcium Level 7.6 mg/dL (8.5-10.1) Magnesium Level 1.8 mg/dL (1.8-2.4) Triglycerides Level 130 mg/dL (0-150) Cholesterol Level 128 mg/dL (0-200) LDL Cholesterol, Calculated 70 mg/dL (0-100) VLDL Cholesterol, Calculated 26 mg/dL (0-40) Non-HDL Cholesterol Calculated 96 mg/dL (0-129) HDL Cholesterol 32 mg/dL (40-60) Cholesterol/HDL Ratio 4.0 Urine Opiates Screen Neg (NEG) Urine Methadone Screen Neg (NEG) Urine Barbiturates Neg (NEG) Urine Phencyclidine Screen Neg (NEG) Urine Amphetamine/Methamphetamine Neg (NEG) Urine Benzodiazepines Screen Neg (NEG) Urine Cocaine Screen Neg (NEG) Urine Cannabinoids Screen Neg (NEG) Urine Ethyl Alcohol Neg (NEG) Laboratory Tests Test 01/07/22 19:53 Urine Opiates Screen Neg (NEG) Urine Methadone Screen Neg (NEG) Urine Barbiturates Neg (NEG) Urine Phencyclidine Screen Neg (NEG) Urine Amphetamine/Methamphetamine Neg (NEG) Urine Benzodiazepines Screen Neg (NEG) Urine Cocaine Screen Neg (NEG) Urine Cannabinoids Screen Neg (NEG) Urine Ethyl Alcohol Neg (NEG) Brief Hospital Course Mr. Palafox is a 61 old admit for accel htn, edmea, shortness of breath, BP meds, IV lasix, symtoms [facility], [place] to primary care, Discharge Information Condition at Discharge: Improved Follow Up: Weeks Disposition/Orders: D/C to Home Scheduled Amlodipine Besylate (Amlodipine Besylate) 5 Mg Tablet, 5 MG PO DAILY for blood pressure, #30 Ref 1 Prescribed by: SCOTT ORANTES on 01/07/22 1557 Atorvastatin Calcium (Atorvastatin Calcium) 40 Mg Tablet, 40 MG PO QHS for lipi ds, #30 Ref 1 Prescribed by: SCOTT ORANTES on 01/07/22 1557 Furosemide (Lasix) 40 Mg Tablet, 1 TAB PO DAILY for CHF for 30 Days, #30 Ref 0 Prescribed by: SCOTT ORANTES on 01/07/22 1557 Potassium Chloride (Klor-Con 10) 10 Meq Tablet.er, 1 TAB PO DAILY for while on Lasix for 30 Days, #30 Ref 0 Prescribed by: SCOTT ORANTES on 01/07/22 1557 Patient Instructions Patient Instructions face to face, felt well, improed, Justicifation of Admission Dx: Justifications for Admission: Justification of Admission Dx: Yes CHF: Hemodynamic Instability SCOTT ORANTES MD Jan 08, 2022 14:15
[2022-01-08 19:33] VITALS: BP 182/99
[2022-01-08] MEDS: ATORVASTATIN CALCIUM 40 MG TABLET. PO SCH (21:46)
[2022-01-08 22:47] VITALS: BP 149/70
[2022-01-09 03:07] VITALS: BP 155/75
[2022-01-09 07:00] VITALS: BP 157/92
--- NOTE | 2022-01-09 08:26 | RAD ---
XR CHEST 1V History: Reason: hypoxia / Spl. Instructions: / History: Comparison: January 06, 2022 Findings: Decreased small loculated right pleural effusion. Increased patchy right basilar opacities. Enlarged iliac size, unchanged. No pneumothorax. Impression: 1. Increased patchy bibasilar opacities, may represent atelectasis or developing consolidations. 2. Decreased loculated right pleural effusion. Electronically signed by: Benson Zapien DO (01/09/2022 8:23 AM) [id number]
[2022-01-09] MEDS: POTASSIUM CHLORIDE 20 MEQ TABLET.ER. PO SCH (08:39)
[2022-01-09] MEDS: ASPIRIN ENTERIC COATED 81 MG TABLET.DR. PO SCH (08:39)
[2022-01-09] MEDS: FUROSEMIDE 80 MG TABLET. PO SCH (09:16)
[2022-01-09 09:58] LABS: BASO % 1 % (0-3); EOS # 0.1 x10^3/uL (0.0-0.7); EOS % 2 % (0-3); HEMATOCRIT 43.9 % (39.0-53.0); HEMOGLOBIN 13.5 g/dL (13.0-17.5); LYMPH # 0.9 x10^3/uL (1.0-4.8); LYMPH % 16 % (24-48); MEAN CORPUSCULAR HEMOGLOBIN 24 pg (25-35); MEAN CORPUSCULAR HGB CONC 31 g/dL (31-37); MEAN CORPUSCULAR VOLUME 77 fL (79-100); MONO # 0.6 x10^3/uL (0.0-1.1); MONO % 10 % (0-9); NEUT # 4.2 x10^3/uL (1.8-7.7); NEUT % 71 % (31-73); PLATELET COUNT 148 x10^3/uL (140-400); RED BLOOD COUNT 5.69 x10^6/uL (4.30-5.70); RED CELL DISTRIBUTION WIDTH 15.4 % (11.5-14.5); WHITE BLOOD COUNT 5.8 x10^3/uL (4.0-11.0)
--- NOTE | 2022-01-09 10:14 | PDOC ---
HAM TOLEDO APRN 01/09/22 1014: CARDIO Progress Notes Date and Time Date of Service 01/09/22 Time of Evaluation 1010 Subjective Subjective: No Chest Pain, No Palpitations, No Dizziness, Other (not more SOA) Vitals Vitals Vital Signs Date Time Temp Pulse Resp B/P (MAP) Pulse Ox O2 Delivery O2 Flow Rate FiO2 01/09/22 08:40 67 157/92 01/09/22 08:00 Nasal Cannula 3.0 01/09/22 07:00 97.2 18 99 97.2 Weight Weight [ ] Input and Output Intake and Output Intake and Output 01/09/22 07:00 Intake Total 520 ml Output Total 750 ml Balance -230 ml Intake Oral 520 ml Output Urine Total 750 ml # Bowel Movements 1 Physical Exam HEENT: Neck Supple W Full Motion Chest: Symmetric LUNGS: Other (bibasilar crackles ) Heart: RRR Abdomen: Other (distended ) Extremities: Other (1+ bilateral LE edema ) Neurology: alert, oriented, follow commands Assessment Assessment 1. Acute diastolic CHF; s/p IV Lasix. Repeat CXR worse 2. Acute respiratory failure with CHF. Pulmonary consulted 3. Accelerated HTN; better controlled, but remains mildly elevated 4. Mild troponin elevation; high sensitivity trop peak 143. Most probably type II, demand ischemia secondary to above. CP free. EKG suggestive of anteroseptal ischemia. Echo with preserved LV systolic function. 5. Diabetes, II 6. PulmHTN; PAP 50 mmHg Recommendations Lasix therapy BMP ASA, statin Add coreg R/o COVID Chest CT for further evaluation Outpatient ischemic evaluation Supportive care Justicifation of Admission Dx: Justifications for Admission: Justification of Admission Dx: Yes CHF: Hemodynamic Instability GAIL PAULINO MD 01/09/221924: CARDIO Progress Notes Plan Plan The patient was seen and interviewed as well as examined at the bedside. The chart was reviewed. The case was discussed. Agree with the plan of care. HAM TOLEDO APRN Jan 09, 2022 10:14 GAIL PAULINO MD Jan 09, 2022 19:25
[2022-01-09 10:17] LABS: ALBUMIN 2.3 g/dL (3.4-5.0); ALBUMIN/GLOBULIN RATIO 0.7 (1.0-1.7); ALK PHOS 80 U/L (46-116); ALT (SGPT) 34 U/L (16-63); AST (SGOT) 17 U/L (15-37); BLOOD UREA NITROGEN 11 mg/dL (8-26); BUN/CREATININE RATIO 16 (6-20); CALCIUM 7.9 mg/dL (8.5-10.1); CARBON DIOXIDE 42 mmol/L (21-32); CHLORIDE 100 mmol/L (98-107); CREATININE 0.7 mg/dL (0.7-1.3); GFR 114.6; GLUCOSE 143 mg/dL (70-99); POTASSIUM 4.9 mmol/L (3.5-5.1); SODIUM 141 mmol/L (136-145); TOTAL BILIRUBIN 0.9 mg/dL (0.2-1.0); TOTAL PROTEIN 5.4 g/dL (6.4-8.2)
[2022-01-09] MEDS ORDERED: PIP/TAZO PER PHARMACY MC PRN (10:30)
[2022-01-09] MEDS ORDERED: FUROSEMIDE 40 MG/4 ML VIAL. IVP ONE (10:30)
[2022-01-09] MEDS ORDERED: VANCOMYCIN PER PHARMACY MC PRN (10:30)
[2022-01-09 11:00] VITALS: BP 147/83
[2022-01-09] MEDS ORDERED: VANCOMYCIN 2 GM in IV NORMAL SALINE 500ML BAG 500 ML IV ONE (11:00)
--- NOTE | 2022-01-09 12:03 | PDOC ---
PULMONARY PROGRESS NOTES DATE: 01/09/22 TIME: 12:02 Vitals Vital Signs Date Time Temp Pulse Resp B/P (MAP) Pulse Ox O2 Delivery O2 Flow Rate FiO2 01/09/22 11:00 78 19 147/83 (104) 93 Nasal Cannula 3.0 01/09/22 07:00 97.2 97.2 Labs Laboratory Tests Test 01/07/22 19:53 01/09/22 09:23 01/09/22 10:45 Urine Opiates Screen Neg (NEG) Urine Methadone Screen Neg (NEG) Urine Barbiturates Neg (NEG) Urine Phencyclidine Screen Neg (NEG) Urine Amphetamine/Methamphetamine Neg (NEG) Urine Benzodiazepines Screen Neg (NEG) Urine Cocaine Screen Neg (NEG) Urine Cannabinoids Screen Neg (NEG) Urine Ethyl Alcohol Neg (NEG) White Blood Count 5.8 x10^3/uL (4.0-11.0) Red Blood Count 5.69 x10^6/uL (4.30-5.70) Hemoglobin 13.5 g/dL (13.0-17.5) Hematocrit 43.9 % (39.0-53.0) Mean Corpuscular Volume 77 fL (79-100) Mean Corpuscular Hemoglobin 24 pg (25-35) Mean Corpuscular Hemoglobin Concent 31 g/dL (31-37) Red Cell Distribution Width 15.4 % (11.5-14.5) Platelet Count 148 x10^3/uL (140-400) Neutrophils (%) (Auto) 71 % (31-73) Lymphocytes (%) (Auto) 16 % (24-48) Monocytes (%) (Auto) 10 % (0-9) Eosinophils (%) (Auto) 2 % (0-3) Basophils (%) (Auto) 1 % (0-3) Neutrophils # (Auto) 4.2 x10^3/uL (1.8-7.7) Lymphocytes # (Auto) 0.9 x10^3/uL (1.0-4.8) Monocytes # (Auto) 0.6 x10^3/uL (0.0-1.1) Eosinophils # (Auto) 0.1 x10^3/uL (0.0-0.7) Basophils # (Auto) 0.0 x10^3/uL (0.0-0.2) Sodium Level 141 mmol/L (136-145) Potassium Level 4.9 mmol/L (3.5-5.1) Chloride Level 100 mmol/L (98-107) Carbon Dioxide Level 42 mmol/L (21-32) Anion Gap (6-14) Blood Urea Nitrogen 11 mg/dL (8-26) Creatinine 0.7 mg/dL (0.7-1.3) Estimated GFR (Cockcroft-Gault) 114.6 BUN/Creatinine Ratio 16 (6-20) Glucose Level 143 mg/dL (70-99) Calcium Level 7.9 mg/dL (8.5-10.1) Magnesium Level 1.5 mg/dL (1.8-2.4) Total Bilirubin 0.9 mg/dL (0.2-1.0) Aspartate Amino Transf (AST/SGOT) 17 U/L (15-37) Alanine Aminotransferase (ALT/SGPT) 34 U/L (16-63) Alkaline Phosphatase 80 U/L (46-116) NE-Avj-W-Type Natriuretic Peptide 1177 pg/mL (0-124) Total Protein 5.4 g/dL (6.4-8.2) Albumin 2.3 g/dL (3.4-5.0) Albumin/Globulin Ratio 0.7 (1.0-1.7) Procalcitonin < 0.10 ng/mL (0.00-0.10) SARS-CoV-2 Antigen (Rapid) Negative (NEGATIVE) Laboratory Tests Test 01/09/22 09:23 01/09/22 10:45 White Blood Count 5.8 x10^3/uL (4.0-11.0) Red Blood Count 5.69 x10^6/uL (4.30-5.70) Hemoglobin 13.5 g/dL (13.0-17.5) Hematocrit 43.9 % (39.0-53.0) Mean Corpuscular Volume 77 fL (79-100) Mean Corpuscular Hemoglobin 24 pg (25-35) Mean Corpuscular Hemoglobin Concent 31 g/dL (31-37) Red Cell Distribution Width 15.4 % (11.5-14.5) Platelet Count 148 x10^3/uL (140-400) Neutrophils (%) (Auto) 71 % (31-73) Lymphocytes (%) (Auto) 16 % (24-48) Monocytes (%) (Auto) 10 % (0-9) Eosinophils (%) (Auto) 2 % (0-3) Basophils (%) (Auto) 1 % (0-3) Neutrophils # (Auto) 4.2 x10^3/uL (1.8-7.7) Lymphocytes # (Auto) 0.9 x10^3/uL (1.0-4.8) Monocytes # (Auto) 0.6 x10^3/uL (0.0-1.1) Eosinophils # (Auto) 0.1 x10^3/uL (0.0-0.7) Basophils # (Auto) 0.0 x10^3/uL (0.0-0.2) Sodium Level 141 mmol/L (136-145) Potassium Level 4.9 mmol/L (3.5-5.1) Chloride Level 100 mmol/L (98-107) Carbon Dioxide Level 42 mmol/L (21-32) Anion Gap (6-14) Blood Urea Nitrogen 11 mg/dL (8-26) Creatinine 0.7 mg/dL (0.7-1.3) Estimated GFR (Cockcroft-Gault) 114.6 BUN/Creatinine Ratio 16 (6-20) Glucose Level 143 mg/dL (70-99) Calcium Level 7.9 mg/dL (8.5-10.1) Magnesium Level 1.5 mg/dL (1.8-2.4) Total Bilirubin 0.9 mg/dL (0.2-1.0) Aspartate Amino Transf (AST/SGOT) 17 U/L (15-37) Alanine Aminotransferase (ALT/SGPT) 34 U/L (16-63) Alkaline Phosphatase 80 U/L (46-116) MG-Xsn-Y-Type Natriuretic Peptide 1177 pg/mL (0-124) Total Protein 5.4 g/dL (6.4-8.2) Albumin 2.3 g/dL (3.4-5.0) Albumin/Globulin Ratio 0.7 (1.0-1.7) Procalcitonin < 0.10 ng/mL (0.00-0.10) SARS-CoV-2 Antigen (Rapid) Negative (NEGATIVE) Medications Active Scripts Medications Dose Route/Sig Max Daily Dose Days Date Category Klor-Con 10 (Potassium Chloride) 10 Meq Tablet.er 1 Tab PO DAILY 30 01/07/22 Rx Lasix (Furosemide) 40 Mg Tablet 1 Tab PO DAILY 30 01/07/22 Rx Amlodipine Besylate 5 Mg Tablet 5 Mg PO DAILY 01/07/22 Rx Atorvastatin Calcium 40 Mg Tablet 40 Mg PO QHS 01/07/22 Rx Impression . PT UNDERGOING CT CHEST REVIEWED CHART SUSPECT MOSTLY CHF WILL REVIEW CT AND MAKE RECOMMENDATION CONTINUE CURRENT RX THANKS GREGG HERNANDEZ MD Jan 09, 2022 12:03
[2022-01-09] MEDS: PIPERACILLIN/TAZOBACTAM 3.375 GM in IV NORMAL SALINE 50ML 50 ML IV SCH ×3 (12:13→23:36)
--- NOTE | 2022-01-09 14:11 | NUR ---
Pharmacy Vancomycin Dosing Note S:Consulted to monitor and dose vancomycin started 01/09/22. O:ARNOLD KRAUS is a 61 year old M with Pneumonia . Height: 5 feet, 7 inches Weight: 112.3 kg [place] Body Weight: Adjusted Body Weight: Dosing Weight: Actual Other Antibiotics: ZOSYN LABS: Last BUN: 11 Last Creatinine: 0.7 Creatinine Clearance: 130 mL/min Last WBC: 5.8 Last Procalcitonin: Tmax (past 24 hours): 98.0 Microbiology: I/O: 360/800 Drug Levels: Last level: on at Last dose given at Vancomycin Dosing: Loading Dose: 2000 mg x1 Dosing Weight: Actual Target Trough: 10-20 A: Based on: HT, WT AND RENAL FXN P: 1. Begin Vancomycin 2000 mg IV q12h 2. Follow up Trough level on 01/11/22 at 0030 3. Pharmacy will continue to monitor, follow and adjust therapy as needed. ANSLEY CUI, [facility], 01/09/22 [id number]
[2022-01-09 15:00] VITALS: BP 144/78
--- NOTE | 2022-01-09 15:28 | RAD ---
EXAMINATION: CT chest without IV contrast INDICATION:61 years, Male, patchy lung infiltrates, new hypoxia. COMPARISON: Chest radiograph dated 01/08/2022 TECHNIQUE: Spiral CT was obtained from the jugular notch through the posterior costophrenic recesses. Expiratory and inspiratory axial acquisitions of the chest were also obtained. Sagittal and coronal reformats were generated. Exposure: One or more of the following individualized dose reduction techniques were utilized for thi s examination: 1. Automated exposure control 2. Adjustment of the mA and/or kV according to patient size 3. Use of iterative reconstruction technique. FINDINGS: Lungs/Pleura: No evidence of pulmonary fibrosis. Specifically, no honeycombing. No bronchiectasis. No significant air-trapping. There is a 5 mm oval-shaped fissure based nodule in the left lower lobe, l ikely representing intrapulmonary lymph node. Moderate amount of right pleural effusion with associat ed compressive atelectasis. Consolidative opacity in the right lower lobe. Left lower lobe dependent subsegmental atelectasis. Mediastinum: Multiple enlarged mediastinal lymph nodes, the largest in subcarinal region measures zuhair roximately 2.5 cm in short axis. Evaluation of karie is limited by lack of IV contrast. The thoracic a cassius is normal in caliber. Enlarged pulmonary trunk measures up to 4.0 cm, most consistent with pulmo nary arterial hypertension. The heart is normal in size. Small amount of pericardial effusion. Mild c oronary artery atherosclerotic calcific changes. The visualized thyroid and the esophagus are unremar kable. Axilla/Soft Tissue: Right worst than left, enlarged axillary and subpectoral lymph nodes, the largest measures 2.5 cm in short axis. No supraclavicular lymphadenopathy by size criteria. Regional soft ti ssues are within normal limits. Upper Abdomen: Mildly enlarged gastrohepatic lymph node measures 1.3 cm in short axis. Bones: No evidence of acute fractures or aggressive osseous lesions. IMPRESSION: 1. No evidence of pulmonary fibrosis. 2. Moderate right pleural effusion with associated compressive atelectasis. 3. Consolidative opacity in the right lower lobe, which may represent atelectasis or pneumonia. 4. Mediastinal, axillary, and subpectoral lymphadenopathy, as well as mildly enlarged gastrohepatic lymph node. Differential includes reactive process versus lymphoproliferative disease. Clinical corre lation is advised. 5. Enlarged pulmonary trunk, most consistent with pulmonary arterial hypertension. Electronically signed by: Carol Molina MD (01/09/2022 3:26 PM) [facility]
--- NOTE | 2022-01-09 16:05 | PDOC ---
[employer] PROGRESS NOTE Date of Service DOS: DATE: 01/09/22 TIME: 16:02 Chief Complaint Chief Complaint strangely hypoxia, started treatement for pneumonia, HCAP, vanc and zosyn acute hypoxic respiratory failure pleural effusion, moderate chronic hypercarbia, C02 up Accelerated HTN on admit, acute diastolic CHF, diuresig NSTEMI 2, demand . DM2 OBESE, bmi 39 History of Present Illness History of Present Illness again feels well, wants to leave, still marked hypoxia with exertion, [address] chest, infiltrate RLL, consult speech, on zosyn maybe DC in AM Vitals/I&O Vitals/I&O: Vital Signs Date Time Temp Pulse Resp B/P (MAP) Pulse Ox O2 Delivery O2 Flow Rate FiO2 01/09/22 15:00 98.2 68 18 144/78 (100) 99 Nasal Cannula 3.0 98.2 I & O 01/08/22 01/08/22 01/09/22 15:00 23:00 07:00 Intake Total 360 ml 160 ml 0 ml Output Total 250 ml 500 ml Balance 110 ml 160 ml -500 ml Physical Exam General: Alert, Oriented X3, Cooperative, No acute distress Heart: Regular rate, No murmurs Lungs: Other Abdomen: Normal bowel sounds, Soft, Other (distended ) Extremities: No clubbing, Other (1-2+ bilateral LE edema ) Skin: No significant lesion Labs Labs: Laboratory Tests Test 01/09/22 09:23 01/09/22 10:45 White Blood Count 5.8 x10^3/uL (4.0-11.0) Red Blood Count 5.69 x10^6/uL (4.30-5.70) Hemoglobin 13.5 g/dL (13.0-17.5) Hematocrit 43.9 % (39.0-53.0) Mean Corpuscular Volume 77 fL (79-100) Mean Corpuscular Hemoglobin 24 pg (25-35) Mean Corpuscular Hemoglobin Concent 31 g/dL (31-37) Red Cell Distribution Width 15.4 % (11.5-14.5) Platelet Count 148 x10^3/uL (140-400) Neutrophils (%) (Auto) 71 % (31-73) Lymphocytes (%) (Auto) 16 % (24-48) Monocytes (%) (Auto) 10 % (0-9) Eosinophils (%) (Auto) 2 % (0-3) Basophils (%) (Auto) 1 % (0-3) Neutrophils # (Auto) 4.2 x10^3/uL (1.8-7.7) Lymphocytes # (Auto) 0.9 x10^3/uL (1.0-4.8) Monocytes # (Auto) 0.6 x10^3/uL (0.0-1.1) Eosinophils # (Auto) 0.1 x10^3/uL (0.0-0.7) Basophils # (Auto) 0.0 x10^3/uL (0.0-0.2) Sodium Level 141 mmol/L (136-145) Potassium Level 4.9 mmol/L (3.5-5.1) Chloride Level 100 mmol/L (98-107) Carbon Dioxide Level 42 mmol/L (21-32) Anion Gap (6-14) Blood Urea Nitrogen 11 mg/dL (8-26) Creatinine 0.7 mg/dL (0.7-1.3) Estimated GFR (Cockcroft-Gault) 114.6 BUN/Creatinine Ratio 16 (6-20) Glucose Level 143 mg/dL (70-99) Calcium Level 7.9 mg/dL (8.5-10.1) Magnesium Level 1.5 mg/dL (1.8-2.4) Total Bilirubin 0.9 mg/dL (0.2-1.0) Aspartate Amino Transf (AST/SGOT) 17 U/L (15-37) Alanine Aminotransferase (ALT/SGPT) 34 U/L (16-63) Alkaline Phosphatase 80 U/L (46-116) ZX-Skw-[id number]-Type Natriuretic Peptide 1177 pg/mL (0-124) Total Protein 5.4 g/dL (6.4-8.2) Albumin 2.3 g/dL (3.4-5.0) Albumin/Globulin Ratio 0.7 (1.0-1.7) Procalcitonin < 0.10 ng/mL (0.00-0.10) SARS-CoV-2 Antigen (Rapid) Negative (NEGATIVE) Assessment and Plan Assessmemt and Plan Problems Medical Problems: (1) Generalized edema due to fluid overload Status: Acute (2) Hx of primary hypertension Status: Acute (3) Hx of type 2 diabetes mellitus Status: Acute (4) New onset of congestive heart failure Status: Acute Comment Review of Relevant I have reviewed the following items indira (where applicable) has been applied. Medications: Current Medications Medications (Trade) Dose Ordered Sig/Bay Route PRN Reason Start Time Stop Time Status Last Admin Dose Admin Furosemide (Lasix) 80 mg DAILY PO 01/09/22 09:30 01/09/22 09:16 Vancomycin HCl (Vanco Per Pharmacy) 1 each PRN DAILY PRN MC SEE COMMENTS 01/09/22 10:30 01/09/22 14:06 Furosemide (Lasix) 40 mg 1X ONCE IVP 01/09/22 10:30 01/09/22 10:32 DC 01/09/22 12:12 Vancomycin HCl 2 gm/Sodium Chloride 500 ml @ 250 mls/hr 1X ONCE IV 01/09/22 11:00 01/09/22 12:59 DC 01/09/22 13:10 Piperacillin Sod/ Tazobactam Sod 3.375 gm/Sodium Chloride 50 ml @ 100 mls/hr Q6HRS IV 01/09/22 11:00 01/09/22 12:13 Justifications for Admission Other Justification SCOTT ORANTES MD Jan 09, 2022 16:05
--- NOTE | 2022-01-09 16:10 | NUR ---
SS following up with discharge planning. SS reviewed pt chart and discussed with pt RN. Pt is currently requiring oxygen at three liters nasal canula. Per RN, chest x ray worse today. COVID19 PCR test pending. Pt on IV Zosyn and IV Vancomycin. Self pay. Med Assist following. Discharge plan is currently to home when medically ready for discharge. SS will continue to follow for discharge planning.
[2022-01-09] MEDS: CARVEDILOL 6.25 MG TABLET. PO SCH (17:39)
[2022-01-09 19:15] VITALS: BP 188/94
[2022-01-09] MEDS: LACTOBACILLUS RHAMNOSUS GG 1 CAPSULE. PO SCH (22:35)
[2022-01-09] MEDS: ATORVASTATIN CALCIUM 40 MG TABLET. PO SCH (22:36)
[2022-01-09 23:19] VITALS: BP 109/64
[2022-01-10] MEDS ORDERED: VANCOMYCIN 2 GM in IV NORMAL SALINE 500ML BAG 500 ML IV SCH (01:00)
[2022-01-10 03:10] VITALS: BP 128/69
[2022-01-10 03:58] LABS: BASO % 1 % (0-3); EOS # 0.1 x10^3/uL (0.0-0.7); EOS % 2 % (0-3); HEMATOCRIT 44.3 % (39.0-53.0); HEMOGLOBIN 13.3 g/dL (13.0-17.5); LYMPH # 0.9 x10^3/uL (1.0-4.8); LYMPH % 15 % (24-48); MEAN CORPUSCULAR HEMOGLOBIN 23 pg (25-35); MEAN CORPUSCULAR HGB CONC 30 g/dL (31-37); MEAN CORPUSCULAR VOLUME 77 fL (79-100); MONO # 0.6 x10^3/uL (0.0-1.1); MONO % 10 % (0-9); NEUT # 4.5 x10^3/uL (1.8-7.7); NEUT % 72 % (31-73); PLATELET COUNT 142 x10^3/uL (140-400); RED BLOOD COUNT 5.75 x10^6/uL (4.30-5.70); RED CELL DISTRIBUTION WIDTH 15.3 % (11.5-14.5); WHITE BLOOD COUNT 6.2 x10^3/uL (4.0-11.0)
[2022-01-10 04:22] LABS: ALBUMIN 2.3 g/dL (3.4-5.0); ALBUMIN/GLOBULIN RATIO 0.6 (1.0-1.7); ALK PHOS 92 U/L (46-116); ALT (SGPT) 23 U/L (16-63); AST (SGOT) 19 U/L (15-37); BLOOD UREA NITROGEN 17 mg/dL (8-26); BUN/CREATININE RATIO 19 (6-20); CALCIUM 8.2 mg/dL (8.5-10.1); CARBON DIOXIDE 42 mmol/L (21-32); CHLORIDE 100 mmol/L (98-107); CREATININE 0.9 mg/dL (0.7-1.3); GFR 85.8; GLUCOSE 163 mg/dL (70-99); POTASSIUM 4.3 mmol/L (3.5-5.1); SODIUM 141 mmol/L (136-145); TOTAL BILIRUBIN 0.6 mg/dL (0.2-1.0); TOTAL PROTEIN 6.1 g/dL (6.4-8.2)
[2022-01-10] MEDS: PIPERACILLIN/TAZOBACTAM 3.375 GM in IV NORMAL SALINE 50ML 50 ML IV SCH (06:26)
[2022-01-10 07:00] VITALS: BP 150/86
--- NOTE | 2022-01-10 07:20 | PDOC ---
PROGRESS NOTES Date of Service: DATE: 01/10/22 TIME: 07:20 Subjective Subjective No new complaints Objective Objective Vital Signs Date Time Temp Pulse Resp B/P (MAP) Pulse Ox O2 Delivery O2 Flow Rate FiO2 01/10/22 03:10 98.0 71 20 128/69 (88) 97 Nasal Cannula 3.0 98.0 Intake and Output 01/10/22 07:00 Intake Total 1690 ml Output Total 1850 ml Balance -160 ml Intake Oral 1140 ml IV Total 550 ml Output Urine Total 1850 ml # Voids 1 # Bowel Movements 2 Physical Exam Abdomen: Normal bowel sounds, Soft, Other Heart: Regular rate, No murmurs Extremities: No clubbing, Other General: Alert, Oriented X3, Cooperative, No acute distress HEENT: Atraumatic, Mucous membr. moist/pink Lungs: Other (crackles ) MUSCULOSKELETAL: Osteoarthritic changes both hands Neuro: Normal speech, Sensation intact Psych/Mental Status: Mental status NL, Mood NL Skin: No significant lesion Assessment Assessment 1. Acute diastolic CHF; better compensated after diuresis 2. Acute respiratory failure with CHF. 3. Accelerated HTN; better controlled 4. Mild troponin elevation; high sensitivity trop peak 143. Most probably type II, demand ischemia secondary to above. CP free. Echo with preserved LV systolic function. 5. Diabetes, II 6. PulmHTN; PAP 50 mmHg Recommendations Lasix therapy ASA, statin Outpatient ischemic evaluation Supportive care Plan Plan of Care Problems Medical Problems: (1) Generalized edema due to fluid overload Status: Acute (2) Hx of primary hypertension Status: Acute (3) Hx of type 2 diabetes mellitus Status: Acute (4) New onset of congestive heart failure Status: Acute Comment Review of Relevant I have reviewed the following items indira (where applicable) has been applied. Labs Laboratory Tests Test 01/09/22 09:23 01/09/22 10:45 01/10/22 03:45 White Blood Count 5.8 x10^3/uL (4.0-11.0) 6.2 x10^3/uL (4.0-11.0) Red Blood Count 5.69 x10^6/uL (4.30-5.70) 5.75 x10^6/uL (4.30-5.70) Hemoglobin 13.5 g/dL (13.0-17.5) 13.3 g/dL (13.0-17.5) Hematocrit 43.9 % (39.0-53.0) 44.3 % (39.0-53.0) Mean Corpuscular Volume 77 fL (79-100) 77 fL (79-100) Mean Corpuscular Hemoglobin 24 pg (25-35) 23 pg (25-35) Mean Corpuscular Hemoglobin Concent 31 g/dL (31-37) 30 g/dL (31-37) Red Cell Distribution Width 15.4 % (11.5-14.5) 15.3 % (11.5-14.5) Platelet Count 148 x10^3/uL (140-400) 142 x10^3/uL (140-400) Neutrophils (%) (Auto) 71 % (31-73) 72 % (31-73) Lymphocytes (%) (Auto) 16 % (24-48) 15 % (24-48) Monocytes (%) (Auto) 10 % (0-9) 10 % (0-9) Eosinophils (%) (Auto) 2 % (0-3) 2 % (0-3) Basophils (%) (Auto) 1 % (0-3) 1 % (0-3) Neutrophils # (Auto) 4.2 x10^3/uL (1.8-7.7) 4.5 x10^3/uL (1.8-7.7) Lymphocytes # (Auto) 0.9 x10^3/uL (1.0-4.8) 0.9 x10^3/uL (1.0-4.8) Monocytes # (Auto) 0.6 x10^3/uL (0.0-1.1) 0.6 x10^3/uL (0.0-1.1) Eosinophils # (Auto) 0.1 x10^3/uL (0.0-0.7) 0.1 x10^3/uL (0.0-0.7) Basophils # (Auto) 0.0 x10^3/uL (0.0-0.2) 0.0 x10^3/uL (0.0-0.2) Sodium Level 141 mmol/L (136-145) 141 mmol/L (136-145) Potassium Level 4.9 mmol/L (3.5-5.1) 4.3 mmol/L (3.5-5.1) Chloride Level 100 mmol/L (98-107) 100 mmol/L (98-107) Carbon Dioxide Level 42 mmol/L (21-32) 42 mmol/L (21-32) Anion Gap (6-14) (6-14) Blood Urea Nitrogen 11 mg/dL (8-26) 17 mg/dL (8-26) Creatinine 0.7 mg/dL (0.7-1.3) 0.9 mg/dL (0.7-1.3) Estimated GFR (Cockcroft-Gault) 114.6 85.8 BUN/Creatinine Ratio 16 (6-20) 19 (6-20) Glucose Level 143 mg/dL (70-99) 163 mg/dL (70-99) Calcium Level 7.9 mg/dL (8.5-10.1) 8.2 mg/dL (8.5-10.1) Magnesium Level 1.5 mg/dL (1.8-2.4) Total Bilirubin 0.9 mg/dL (0.2-1.0) 0.6 mg/dL (0.2-1.0) Aspartate Amino Transf (AST/SGOT) 17 U/L (15-37) 19 U/L (15-37) Alanine Aminotransferase (ALT/SGPT) 34 U/L (16-63) 23 U/L (16-63) Alkaline Phosphatase 80 U/L (46-116) 92 U/L (46-116) RL-Ujw-H-Type Natriuretic Peptide 1177 pg/mL (0-124) Total Protein 5.4 g/dL (6.4-8.2) 6.1 g/dL (6.4-8.2) Albumin 2.3 g/dL (3.4-5.0) 2.3 g/dL (3.4-5.0) Albumin/Globulin Ratio 0.7 (1.0-1.7) 0.6 (1.0-1.7) Procalcitonin < 0.10 ng/mL (0.00-0.10) SARS-CoV-2 Antigen (Rapid) Negative (NEGATIVE) Medications Current Medications Carvedilol (Coreg) 6.25 mg BIDWMEALS PO Last administered on 01/09/22at 17:39; Start 01/09/22 at 17:00 Furosemide (Lasix) 40 mg 1X ONCE IVP Last administered on 01/09/22at 12:12; Start 01/09/22 at 10:30; Stop 01/09/22 at 10:32; Status DC Furosemide (Lasix) 80 mg DAILY PO Last administered on 01/09/22at 09:16; Start 01/09/22 at 09:30 Lactobacillus Rhamnosus (Culturelle) 1 cap BID PO Last administered on 01/09/22at 22:35; Start 01/09/22 at 21:00 Piperacillin Sod/ Tazobactam Sod (Zosyn Per Pharmacy) 1 each PRN DAILY PRN MC SEE COMMENTS; Start 01/09/22 at 10:30 Piperacillin Sod/ Tazobactam Sod 3.375 gm/Sodium Chloride 50 ml @ 100 mls/hr Q6HRS IV Last administered on 01/10/22at 06:26; Start 01/09/22 at 11:00 Vancomycin HCl (Vanco Per Pharmacy) 1 each PRN DAILY PRN MC SEE COMMENTS Last administered on 01/09/22at 14:06; Start 01/09/22 at 10:30 Vancomycin HCl (Vancomycin Trough Level) 1 each 1X ONCE MC ; Start 01/11/22 at 00:30; Stop 01/11/22 at 00:31 Vancomycin HCl 2 gm/Sodium Chloride 500 ml @ 250 mls/hr 1X ONCE IV Last administered on 01/09/22at 13:10; Start 01/09/22 at 11:00; Stop 01/09/22 at 12:59; Status DC Vancomycin HCl 2 gm/Sodium Chloride 500 ml @ 250 mls/hr Q12H IV Last administered on 01/10/22at 01:00; Start 01/10/22 at 01:00 Vitals/I & O Vital Sign - Last 24 Hours 01/09/22 01/09/22 01/09/22 01/09/22 08:00 08:40 11:00 15:00 Temp 98.2 98.2 Pulse 67 78 68 Resp 19 18 B/P (MAP) 157/92 147/83 (104) 144/78 (100) Pulse Ox 93 99 O2 Delivery Nasal Cannula Nasal Cannula Nasal Cannula O2 Flow Rate 3.0 3.0 3.0 01/09/22 01/09/22 01/09/22 01/09/22 17:39 19:15 20:00 22:35 Temp 97.3 97.3 Pulse 68 74 74 Resp 22 B/P (MAP) 144/78 188/94 (125) 188/94 Pulse Ox 97 O2 Delivery Nasal Cannula Nasal Cannula O2 Flow Rate 3.0 3.0 01/09/22 01/10/22 23:19 03:10 Temp 98.1 98.0 98.1 98.0 Pulse 73 71 Resp 21 20 B/P (MAP) 109/64 (79) 128/69 (88) Pulse Ox 97 97 O2 Delivery Nasal Cannula Nasal Cannula O2 Flow Rate 3.0 3.0 Intake and Output 01/09/22 01/09/22 01/10/22 15:00 23:00 07:00 Intake Total 360 ml 180 ml 1150 ml Output Total 800 ml 200 ml 850 ml Balance -440 ml -20 ml 300 ml BEVERLY SEE MD Jan 10, 2022 07:20
[2022-01-10] MEDS: ASPIRIN ENTERIC COATED 81 MG TABLET.DR. PO SCH (08:46)
[2022-01-10] MEDS: FUROSEMIDE 80 MG TABLET. PO SCH (08:47)
[2022-01-10] MEDS: POTASSIUM CHLORIDE 20 MEQ TABLET.ER. PO SCH (08:48)
[2022-01-10] MEDS: LACTOBACILLUS RHAMNOSUS GG 1 CAPSULE. PO SCH (08:48)
[2022-01-10] MEDS: CARVEDILOL 6.25 MG TABLET. PO SCH (08:48)
--- NOTE | 2022-01-10 08:52 | PDOC ---
PULMONARY PROGRESS NOTES DATE: 01/10/22 TIME: 08:51 Vitals Vital Signs Date Time Temp Pulse Resp B/P (MAP) Pulse Ox O2 Delivery O2 Flow Rate FiO2 01/10/22 07:00 98.1 70 20 150/86 (107) 98 Nasal Cannula 3.0 98.1 Lungs: Other Labs Laboratory Tests Test 01/09/22 09:23 01/09/22 10:45 01/10/22 03:45 White Blood Count 5.8 x10^3/uL (4.0-11.0) 6.2 x10^3/uL (4.0-11.0) Red Blood Count 5.69 x10^6/uL (4.30-5.70) 5.75 x10^6/uL (4.30-5.70) Hemoglobin 13.5 g/dL (13.0-17.5) 13.3 g/dL (13.0-17.5) Hematocrit 43.9 % (39.0-53.0) 44.3 % (39.0-53.0) Mean Corpuscular Volume 77 fL (79-100) 77 fL (79-100) Mean Corpuscular Hemoglobin 24 pg (25-35) 23 pg (25-35) Mean Corpuscular Hemoglobin Concent 31 g/dL (31-37) 30 g/dL (31-37) Red Cell Distribution Width 15.4 % (11.5-14.5) 15.3 % (11.5-14.5) Platelet Count 148 x10^3/uL (140-400) 142 x10^3/uL (140-400) Neutrophils (%) (Auto) 71 % (31-73) 72 % (31-73) Lymphocytes (%) (Auto) 16 % (24-48) 15 % (24-48) Monocytes (%) (Auto) 10 % (0-9) 10 % (0-9) Eosinophils (%) (Auto) 2 % (0-3) 2 % (0-3) Basophils (%) (Auto) 1 % (0-3) 1 % (0-3) Neutrophils # (Auto) 4.2 x10^3/uL (1.8-7.7) 4.5 x10^3/uL (1.8-7.7) Lymphocytes # (Auto) 0.9 x10^3/uL (1.0-4.8) 0.9 x10^3/uL (1.0-4.8) Monocytes # (Auto) 0.6 x10^3/uL (0.0-1.1) 0.6 x10^3/uL (0.0-1.1) Eosinophils # (Auto) 0.1 x10^3/uL (0.0-0.7) 0.1 x10^3/uL (0.0-0.7) Basophils # (Auto) 0.0 x10^3/uL (0.0-0.2) 0.0 x10^3/uL (0.0-0.2) Sodium Level 141 mmol/L (136-145) 141 mmol/L (136-145) Potassium Level 4.9 mmol/L (3.5-5.1) 4.3 mmol/L (3.5-5.1) Chloride Level 100 mmol/L (98-107) 100 mmol/L (98-107) Carbon Dioxide Level 42 mmol/L (21-32) 42 mmol/L (21-32) Anion Gap (6-14) (6-14) Blood Urea Nitrogen 11 mg/dL (8-26) 17 mg/dL (8-26) Creatinine 0.7 mg/dL (0.7-1.3) 0.9 mg/dL (0.7-1.3) Estimated GFR (Cockcroft-Gault) 114.6 85.8 BUN/Creatinine Ratio 16 (6-20) 19 (6-20) Glucose Level 143 mg/dL (70-99) 163 mg/dL (70-99) Calcium Level 7.9 mg/dL (8.5-10.1) 8.2 mg/dL (8.5-10.1) Magnesium Level 1.5 mg/dL (1.8-2.4) Total Bilirubin 0.9 mg/dL (0.2-1.0) 0.6 mg/dL (0.2-1.0) Aspartate Amino Transf (AST/SGOT) 17 U/L (15-37) 19 U/L (15-37) Alanine Aminotransferase (ALT/SGPT) 34 U/L (16-63) 23 U/L (16-63) Alkaline Phosphatase 80 U/L (46-116) 92 U/L (46-116) GQ-Wjq-C-Type Natriuretic Peptide 1177 pg/mL (0-124) Total Protein 5.4 g/dL (6.4-8.2) 6.1 g/dL (6.4-8.2) Albumin 2.3 g/dL (3.4-5.0) 2.3 g/dL (3.4-5.0) Albumin/Globulin Ratio 0.7 (1.0-1.7) 0.6 (1.0-1.7) Procalcitonin < 0.10 ng/mL (0.00-0.10) SARS-CoV-2 Antigen (Rapid) Negative (NEGATIVE) Laboratory Tests Test 01/09/22 09:23 01/09/22 10:45 01/10/22 03:45 White Blood Count 5.8 x10^3/uL (4.0-11.0) 6.2 x10^3/uL (4.0-11.0) Red Blood Count 5.69 x10^6/uL (4.30-5.70) 5.75 x10^6/uL (4.30-5.70) Hemoglobin 13.5 g/dL (13.0-17.5) 13.3 g/dL (13.0-17.5) Hematocrit 43.9 % (39.0-53.0) 44.3 % (39.0-53.0) Mean Corpuscular Volume 77 fL (79-100) 77 fL (79-100) Mean Corpuscular Hemoglobin 24 pg (25-35) 23 pg (25-35) Mean Corpuscular Hemoglobin Concent 31 g/dL (31-37) 30 g/dL (31-37) Red Cell Distribution Width 15.4 % (11.5-14.5) 15.3 % (11.5-14.5) Platelet Count 148 x10^3/uL (140-400) 142 x10^3/uL (140-400) Neutrophils (%) (Auto) 71 % (31-73) 72 % (31-73) Lymphocytes (%) (Auto) 16 % (24-48) 15 % (24-48) Monocytes (%) (Auto) 10 % (0-9) 10 % (0-9) Eosinophils (%) (Auto) 2 % (0-3) 2 % (0-3) Basophils (%) (Auto) 1 % (0-3) 1 % (0-3) Neutrophils # (Auto) 4.2 x10^3/uL (1.8-7.7) 4.5 x10^3/uL (1.8-7.7) Lymphocytes # (Auto) 0.9 x10^3/uL (1.0-4.8) 0.9 x10^3/uL (1.0-4.8) Monocytes # (Auto) 0.6 x10^3/uL (0.0-1.1) 0.6 x10^3/uL (0.0-1.1) Eosinophils # (Auto) 0.1 x10^3/uL (0.0-0.7) 0.1 x10^3/uL (0.0-0.7) Basophils # (Auto) 0.0 x10^3/uL (0.0-0.2) 0.0 x10^3/uL (0.0-0.2) Sodium Level 141 mmol/L (136-145) 141 mmol/L (136-145) Potassium Level 4.9 mmol/L (3.5-5.1) 4.3 mmol/L (3.5-5.1) Chloride Level 100 mmol/L (98-107) 100 mmol/L (98-107) Carbon Dioxide Level 42 mmol/L (21-32) 42 mmol/L (21-32) Anion Gap (6-14) (6-14) Blood Urea Nitrogen 11 mg/dL (8-26) 17 mg/dL (8-26) Creatinine 0.7 mg/dL (0.7-1.3) 0.9 mg/dL (0.7-1.3) Estimated GFR (Cockcroft-Gault) 114.6 85.8 BUN/Creatinine Ratio 16 (6-20) 19 (6-20) Glucose Level 143 mg/dL (70-99) 163 mg/dL (70-99) Calcium Level 7.9 mg/dL (8.5-10.1) 8.2 mg/dL (8.5-10.1) Magnesium Level 1.5 mg/dL (1.8-2.4) Total Bilirubin 0.9 mg/dL (0.2-1.0) 0.6 mg/dL (0.2-1.0) Aspartate Amino Transf (AST/SGOT) 17 U/L (15-37) 19 U/L (15-37) Alanine Aminotransferase (ALT/SGPT) 34 U/L (16-63) 23 U/L (16-63) Alkaline Phosphatase 80 U/L (46-116) 92 U/L (46-116) EV-Yek-R-Type Natriuretic Peptide 1177 pg/mL (0-124) Total Protein 5.4 g/dL (6.4-8.2) 6.1 g/dL (6.4-8.2) Albumin 2.3 g/dL (3.4-5.0) 2.3 g/dL (3.4-5.0) Albumin/Globulin Ratio 0.7 (1.0-1.7) 0.6 (1.0-1.7) Procalcitonin < 0.10 ng/mL (0.00-0.10) SARS-CoV-2 Antigen (Rapid) Negative (NEGATIVE) Medications Active Scripts Medications Dose Route/Sig Max Daily Dose Days Date Category Klor-Con 10 (Potassium Chloride) 10 Meq Tablet.er 1 Tab PO DAILY 30 01/07/22 Rx Lasix (Furosemide) 40 Mg Tablet 1 Tab PO DAILY 30 01/07/22 Rx Amlodipine Besylate 5 Mg Tablet 5 Mg PO DAILY 01/07/22 Rx Atorvastatin Calcium 40 Mg Tablet 40 Mg PO QHS 01/07/[address] chest reviewed Compressive atelectasis possible pneumonia Hypoxemia multifactorial Discharge home from my standpoint of view okay, needs oxygen, Augmentin for 2 weeks Follow-up with me in 2 months Patient self-insured, he stated that he is able to pay for oxygen [id number] Discharge home when okay with other services GREGG HERNANDEZ MD Jan 10, 2022 08:52
[2022-01-10] MEDS ORDERED: AMOXICILLIN/K CLAV 875/125MG TABLET. PO SCH (09:30)
--- NOTE | 2022-01-10 09:50 | CONS ---
DATE OF CONSULTATION: 01/10/2022 ATTENDING PHYSICIAN: Siddharth Nielson DO. REASON FOR CONSULTATION: The patient is seen in pulmonary consultation at the request of Dr. Christianson for abnormal CT chest revealing no fibrosis, moderate right-sided effusion associated with compressive atelectasis. There is also opacities in the right lower lobe. There is some mediastinal, axillary lymphadenopathy. HISTORY OF PRESENT ILLNESS: The patient is seen in pulmonary consultation for the above. He presented because of lower extremity edema. He speaks Ukrainian, unable to communicate with him. He has been seen in consult by Cardiology. He has had an echocardiogram revealing elevated pulmonary artery pressure. He is currently being treated for acute diastolic heart failure, accelerated hypertension. The patient denies fever, chills, night sweats. He does smoke, but quit approximately 4 years ago. PAST MEDICAL HISTORY: Otherwise remarkable for hypertension, diabetes. PAST SURGICAL HISTORY: None. FAMILY HISTORY: Diabetes. SOCIAL HISTORY: He works. Denies any current use of tobacco. REVIEW OF SYSTEMS: As indicated above, otherwise other systems were reviewed and negative. CURRENT MEDICATIONS: List was reviewed. He is currently receiving IV vancomycin and Zosyn. PHYSICAL EXAMINATION: VITAL SIGNS: Stable. O2 saturation on 3 liters was greater than 92%. He has been afebrile since admission. HEENT: Eyes: The sclerae were nonicteric. NECK: Jugular venous distention was not elevated. No lymphadenopathy. CHEST: Full expansion. LUNGS: Crackles throughout both lung jackson. CARDIOVASCULAR: Regular rate and rhythm with S1, S2, no S3. ABDOMEN: Soft. EXTREMITIES: No clubbing, cyanosis. Some edema. NEUROLOGIC: The patient was awake, alert, following commands. A detailed neuro exam was not performed. LABORATORY DATA: White count was normal. Electrolytes were noted. BUN and creatinine was noted. BUN was low. Toxicology screen was negative. UA was noted. Serology for SARS-CoV-2 was negative. IMPRESSION: 1. Progressive dyspnea, multifactorial. 2. Acute diastolic heart failure. 3. Abnormal CT revealing compressive atelectasis and right lower lobe pneumonia. 4. Secondary pulmonary hypertension. 5. Acute respiratory failure. PLAN: 1. From my standpoint of view, patient is okay to discharge home on Augmentin and oxygen supplementation. 2. Follow up with me in 2 months with a repeat CT chest. 3. Optimize cardiac meds. 4. Discharge home when okay with other services. I do appreciate the privilege in sharing in the patient's care. KALPESH DR: Sumanth TID: [id number]
[2022-01-10] MEDS ORDERED: AMOX1TAB61 PO (10:16)
[2022-01-10 11:20] VITALS: BP 121/70
== END 2022-01-10 12:00 | disposition home or self-care (01) | DRG 280 ==
LOC: ER 08:39 → ED HOLD 10:03 → 6 SOUTH 12:33
PROVIDERS: ADMIT Internal Medicine; ATTEND Internal Medicine
DX: I11.0 Hypertensive heart disease with heart failure (principal); J96.01 Acute respiratory failure with hypoxia; I21.A1 Myocardial infarction type 2; J18.9 Pneumonia, unspecified organism; I50.43 Acute on chronic combined systolic (congestive) and diastolic (congestive) heart failure; E11.9 Type 2 diabetes mellitus without complications; E66.9 Obesity, unspecified; Z68.39 Body mass index [BMI] 39.0-39.9, adult; I27.29 Other secondary pulmonary hypertension; Y95 Nosocomial condition; Z83.3 Family history of diabetes mellitus; Z87.891 Personal history of nicotine dependence; Z91.14 Patient's other noncompliance with medication regimen; Z20.822 Contact with and (suspected) exposure to COVID-19
CPT/HCPCS: 36415; 71045; 71250; 80048; 80053; 80061; 80307; 81001; 83036; 83735; 83880; 84145; 84443; 84484; 85025; 87426; 93005; 93306; 94618; 96374; J0360; J1940; J2543; J3370; J7040; U0003; 99285-25; C8929; G0378